=== PATIENT | female | born 1990 ===

== ENCOUNTER 2018-01-11 05:30 | Inpatient (IN) | payer OTHER, SELFPAY ==
[2018-01-11] MEDS ORDERED: Ibuprofen 800 MG TAB PO PRN (05:48)
[2018-01-11] MEDS ORDERED: Misoprostol 200 MCG TAB PR PRN (05:48)
[2018-01-11] MEDS ORDERED: Lidocaine 1% (PF) 30 ML VIAL SC PRN (05:48)
[2018-01-11] MEDS ORDERED: Ondansetron HCl/PF 4 MG/2 ML Vial IVP PRN ×2 (05:48→17:06)
[2018-01-11] MEDS ORDERED: NS w/ Oxytocin 10 units 500 ML IV SCH (05:48)
[2018-01-11] MEDS ORDERED: Butorphanol Tartrate 1 MG/ML VIAL SLOW IVP PRN (05:48)
[2018-01-11] MEDS ORDERED: HYDROcodone/Acetaminophen 5/325 mg Tablet PO PRN ×2 (05:48)
[2018-01-11] MEDS ORDERED: Promethazine HCl 25 MG/ML VIAL IM PRN (05:48)
[2018-01-11] MEDS ORDERED: Diphenoxylate HCl/Atropine Tablet PO PRN ×2 (05:48)
[2018-01-11] MEDS ORDERED: Zolpidem Tartrate 5 MG TAB PO PRN ×2 (05:48→17:06)
[2018-01-11] MEDS ORDERED: NS / Oxytocin 40 units/1000ml 1,000 ML IV PRN (05:48)
[2018-01-11] MEDS ORDERED: Docusate 100 MG CAP PO PRN (05:48)
[2018-01-11 06:09] VITALS: BMI 47.2
[2018-01-11 06:23] LABS: Hemoglobin 12.9 g/dL (12.0-16.0); Mean Corpuscular HGB CONC 36.1 g/dL (32.0-36.0); Mean Corpuscular Hemoglobin 32.4 pg (27.0-31.0); Mean Corpuscular Volume 89.8 fL (78.0-98.0); Mean Platelet Volume 6.6 fL (7.4-10.4); Platelet Count 266 thou/uL (130-400); RBC Distribution Width 12.3 % (11.5-14.5); Red Blood Cell (RBC) Count 3.98 mill/uL (4.20-5.40); White Blood Cell (WBC) Count 12.1 thou/uL (4.8-10.8)
[2018-01-11] MEDS: Lactated Ringer's 1,000 ML IV SCH ×4 (06:37→14:07)
[2018-01-11 07:04] LABS: Syphilis Antibody Nonreactive (Nonreactive); Syphilis Antibody Index 0.06 S/CO (<1.00 Non-Reactive)
[2018-01-11 07:05] LABS: HBSAg Index 0.18 S/CO (0-0.99); Hep B Surf Ag Non-Reactive S/CO (NonReactive)
[2018-01-11] MEDS ORDERED: Bupivacaine/Epinephrine 0.25% 30 ML VIAL ONE (11:11)
[2018-01-11] MEDS ORDERED: DISCONTINUE ALL PREVIOUS NARCOTICS FS SCH (11:15)
[2018-01-11] MEDS ORDERED: Bupivacaine 0.75% 13.4 ML, fentaNYL Citrate/PF 400 MCG in Sodium Chloride 0.9% 78.6 ML EPIDURAL SCH (11:15)
[2018-01-11] MEDS ORDERED: Fentanyl 100 MCG/2 ML VIAL ONE (11:25)
[2018-01-11] MEDS ORDERED: Milk Of Magnesia 30 ML UDCUP PO PRN (17:06)
[2018-01-11] MEDS ORDERED: Acetaminophen/Codeine 30-300mg Tablet PO PRN ×2 (17:06)
[2018-01-11] MEDS ORDERED: Adacel (T-DAP) 0.5 ML VIAL IM ONE (17:06)
[2018-01-11] MEDS ORDERED: Benzocaine/Menthol 20-0.5% 60 ML CAN TOP PRN (17:06)
[2018-01-11] MEDS ORDERED: Lanolin Ointment 7 GM TUBE TOP PRN (17:06)
[2018-01-11] MEDS ORDERED: diphenhydrAMINE 25 MG CAP PO PRN (17:06)
[2018-01-11] MEDS ORDERED: Bisacodyl 10 MG SUPP PR PRN (17:06)
[2018-01-11] MEDS ORDERED: Preparation H Ointment 28 GM TUBE PR PRN (17:06)
[2018-01-11] MEDS ORDERED: NS / Oxytocin 40 units/1000ml 1,000 ML IV SCH (17:15)
[2018-01-11] MEDS: Ibuprofen 800 MG TAB PO SCH (22:37)
[2018-01-11] MEDS: Docusate Calcium (SURFAK) 240 MG CAP PO SCH (22:37)
[2018-01-12] MEDS: Ibuprofen 800 MG TAB PO SCH ×3 (06:24→21:32)
[2018-01-12] MEDS: Prenatal Vitamin 1 TAB PO SCH (09:35)
[2018-01-12] MEDS: Docusate Calcium (SURFAK) 240 MG CAP PO SCH ×2 (09:35→21:32)
[2018-01-12] MEDS: Ferrous Sulfate 325 MG TAB PO SCH (09:36)
[2018-01-12] MEDS: Lactated Ringer's 1,000 ML IV SCH ×2 (21:28→22:07)
[2018-01-13] MEDS: Ferrous Sulfate 325 MG TAB PO SCH ×2 (02:18→08:34)
[2018-01-13] MEDS: Ibuprofen 800 MG TAB PO SCH ×2 (06:10→13:57)
[2018-01-13] MEDS: Lactated Ringer's 1,000 ML IV SCH ×2 (06:10→13:10)
[2018-01-13 08:38] VITALS: BP 117/75; TEMP 98.5
[2018-01-13] MEDS: Prenatal Vitamin 1 TAB PO SCH (08:46)
[2018-01-13] MEDS: Docusate Calcium (SURFAK) 240 MG CAP PO SCH (08:46)
== END 2018-01-13 13:50 | disposition home or self-care (01) | DRG 775 ==
LOC: L&D 05:38 → 3SW 20:48
PROVIDERS: ADMIT Obstetrics & Gynecology; ATTEND Obstetrics & Gynecology
PROC: 10E0XZZ Delivery of Products of Conception, External Approach (ICD-10-PCS; principal; 2018-01-11)
PROC: 0KQM0ZZ Repair Perineum Muscle, Open Approach (ICD-10-PCS; 2018-01-11)
PROC: 0UQMXZZ Repair Vulva, External Approach (ICD-10-PCS; 2018-01-11)
PROC: 3E0334Z Introduction of Serum, Toxoid and Vaccine into Peripheral Vein, Percutaneous Approach (ICD-10-PCS; 2018-01-11)
DX: O99.02 Anemia complicating childbirth (principal); O71.82 Other specified trauma to perineum and vulva; Z3A.40 40 weeks gestation of pregnancy; Z37.0 Single live birth; O70.1 Second degree perineal laceration during delivery
CPT/HCPCS: 36415; 51702; 85027; 85461; 86780; 86850; 86900; 86901; 87340; 90384; 90715; 96372; J3010; J7050